=== PATIENT | female | born 1970 | race Caucasian/White ===

== ENCOUNTER 2016-07-14 10:15 | Emergency (ER) | payer BC ==
[~2016-07-14] VITALS: Wt 77.0 kg
[~2016-07-14 10:15] MED LIST: AMLO-147 PO; ATOR40TA68 PO; DEXT10TA9 PO; DICL50TA11 PO; NORE-38 PO; PANT40TA4 PO; VALS320T11 PO
[2016-07-14] MEDS ORDERED: HYDROCODONE/APAP (5/325) TAB PO ONE (12:00)
--- NOTE | 2016-07-14 12:38 | RADRPT ---
PROCEDURE: XR Left Elbow. CLINICAL INDICATION: Fracture, injury. TECHNIQUE: Three views of the left elbow are available for review. COMPARISON: None available FINDINGS: Note that evaluation of bony detail is significantly limited in evaluation due to the overlying spli nt. There is an oblique fracture of the posterior olecranon extending to the proximal ulnar shaft w ith about up to 5 mm dorsal displacement of the distal fracture fragment. There also appears to be s uperior and volar subluxation of the distal humerus relative to the radius. There may also be sublu xation at the radioulnar articulation. There is no definite fracture of the radius. The humerus is limited in evaluation although appears largely intact without a displaced fracture. There is a join t effusion. RPTAT: ZZ IMPRESSION: 1. Limited evaluation with a mildly displaced oblique fracture of the posterior olecranon extending to the proximal ulnar shaft. 2. Slight superior and volar subluxation of the distal humerus relative to the radius and possible subluxation at the radioulnar joint. 3. Joint effusion. 4. Note that the examination is significantly limited due to the overlying splint in which other fr actures may be present within the elbow; a follow-up CT may be helpful for additional evaluation. .Daniela Cross MD, MD Date Time Electronically viewed and signed by .Daniela Cross MD, on 07/14/2016 12:38 .T/
--- NOTE | 2016-07-14 15:51 | ERD ---
ER Documentation Chief Complaint Date/Time DATE: 07/14/16 TIME: 15:46 Chief Complaint LEFT ELBOW PAIN, PT ON SPLINT S/P FRACTURE/DISLOCATION HPI 45-year-old female with a past medical history of hyperlipidemia, hypertension presents the ED for follow-up care for her left leg and on fracture she sustained 3 days ago. States that she was in [place] and accidentally tripped over a curb and landed on her left elbow. Reports that a physician at the [facility] recommended for patient to get surgery for her fracture however she wanted to come back to [place] to follow-up with an orthopedic physician here. States that it was initially dislocated and the reduced it without any complications. Patient is right-handed. Reports that she has been taking Garvin for pain. States that she gets spastic type of pains in her left arm with movement and rates it a 9 out of 10. Denies any fever, chills, increased redness, swelling, loss of sensation, loss of range of motion. ROS All systems reviewed and are negative except as per history of present illness. Medications Home Meds Reported Medications Diclofenac Sodium* (Diclofenac Sodium*) 50 Mg Tablet.dr, 50 MG PO DAILY, #60 TAB 06/11/16 Amphet Mzt-Uldnma-G-Amphet (Adderall) 10 Mg Tablet, 10 MG PO DAILY Y for ANXIETY , TAB 06/11/16 Pantoprazole* (Pantoprazole*) 40 Mg Tablet.dr, 40 MG PO DAILY, TAB 06/11/16 Valsartan* (Diovan*) 320 Mg Tablet, 320 MG PO DAILY, TAB 06/11/16 Amlodipine Besylate* (Amlodipine Besylate*) 10 Mg Tablet, 10 MG PO DAILY, #30 TAB 06/11/16 Atorvastatin* (Atorvastatin*) 40 Mg Tablet, 20 MG PO QHS, #30 TAB 06/11/16 Noreth A-Et Estra-Fe Fumarate (Minastrin 24 Fe Chew) 1 Each Tab.chew, 1 TAB PO DAILY, TAB.CHEW 06/11/16 Allergies Allergies: Coded Allergies: Sulfa (Sulfonamide Antibiotics) (Unverified Allergy, Unknown, 06/10/16) acetaminophen (Unverified Allergy, Unknown, 06/10/16) clindamycin (Unverified Allergy, Unknown, 06/10/16) oxycodone (Unverified Allergy, Unknown, 06/10/16) PMhx/Soc History of Surgery: Yes (back sx (may 23, 2016) Anesthesia Reaction: No Hx Neurological Disorder: No Hx Respiratory Disorders: No Hx Cardiac Disorders: Yes (HTN) Hx Psychiatric Problems: No Hx Miscellaneous Medical Probl: No Hx Alcohol Use: No Hx Substance Use: No Hx Tobacco Use: No Smoking Status: Never smoker Physical Exam Vitals Vital Signs Date Time Temp Pulse Resp B/P Pulse Ox O2 Delivery O2 Flow Rate FiO2 07/14/16 10:21 98.4 93 17 135/93 97 Physical Exam Const: Asv-jmr-nligjlqxw, well-nourished. In no acute distress. Head: Atraumatic, normocephalic Eyes: Normal Conjunctiva without injection ENT: Normal external ear, nose and mouth. Neck: Full range of motion. No meningismus. Resp: Clear to auscultation bilaterally. No wheezing, rhonchi, rales, or crackles. No accessory muscle use. No retractions. Cardio: Regular rate and rhythm, no murmurs Skin: No petechiae or rashes Back: No midline tenderness. No CVA tenderness. Ext: No cyanosis, or edema. Left posterior elbow splint placed, patient is neurovascularly intact. Limited range of motion due to pain. Cap refill less than 2 seconds. Distal pulses intact bilaterally. Neur: Awake and alert. Normal gait and coordination. Muscle strength 5/5. Sensation intact bilaterally. Psych: Normal Mood and Affect Results 24 hrs Current Medications Medications (Trade) Dose Ordered Sig/Sandra Route PRN Reason Start Time Stop Time Status Last Admin Dose Admin Acetaminophen/ Hydrocodone Bitart (Garvin (5/325)) 1 tab ONCE ONCE PO 07/14/16 12:00 07/14/16 12:01 DC 07/14/16 12:04 Procedures/MDM This is a 45-year-old female with a past medical history of hyperlipidemia, hypertension presents the ED complaining of a left elbow fracture. Patient is afebrile and nontoxic-appearing. Patient did not receive reports from the [facility]. Therefore a repeat left elbow x-ray was ordered to further evaluate patient. Patient was given Garvin here in the ED with improvement of her pain. PROCEDURE: XR Left Elbow. CLINICAL INDICATION: Fracture, injury. TECHNIQUE: Three views of the left elbow are available for review. COMPARISON: None available FINDINGS: Note that evaluation of bony detail is significantly limited in evaluation due to the overlying splint. There is an oblique fracture of the posterior olecranon extending to the proximal ulnar shaft with about up to 5 mm dorsal displacement of the distal fracture fragment. There also appears to be superior and volar subluxation of the distal humerus relative to the radius. There may also be subluxation at the radioulnar articulation. There is no definite fracture of the radius. The humerus is limited in evaluation although appears largely intact without a displaced fracture. There is a joint effusion. RPTAT: ZZ IMPRESSION: 1. Limited evaluation with a mildly displaced oblique fracture of the posterior olecranon extending to the proximal ulnar shaft. 2. Slight superior and volar subluxation of the distal humerus relative to the radius and possible subluxation at the radioulnar joint. 3. Joint effusion. 4. Note that the examination is significantly limited due to the overlying splint in which other fractures may be present within the elbow; a follow-up CT may be helpful for additional evaluation. Patient sustained a mildly displaced oblique fracture of the posterior olecranon extending to the proximal ulnar shaft with a slight superior and volar subluxation of the distal humerus relative to the radius and possible subluxation of the radial ulnar joint. This was discussed with the orthopedist on-call, Dr. Hillman who stated that patient can be managed on outpatient basis at his clinic. Splint Assessment: Neurovascularly intact post splint placement with good fit.Patient's extremity symptoms have stabilized while they have been evaluated in the department and are appropriate for outpatient follow up. No evidence of compartment syndrome, neurologic injury, vascular injury, open joint, open fracture, tendon laceration, septic arthritis, osteomyelitis, DVT, foreign body , or other emergent conditions. Discharge medications: Patient already received a prescription for Vicodin from the [facility]. No prescriptions given at this time. Follow up with primary care physician in 1-2 days. Instructed patient to return to the ED sooner for any worsening symptoms. Patient's questions were answered. Patient understood and agreed with discharge plan. Patient discharged stable. Departure Diagnosis: Primary Impression: Elbow fracture, left Encounter type: initial encounter Fracture type: closed Qualified Code: S42.402A - Elbow fracture, left, closed, initial encounter Condition: Stable Patient Instructions: Elbow Fracture Referrals: TRACE DENSON MD [facility] YOU HAVE RECEIVED A MEDICAL SCREENING EXAM AND THE RESULTS INDICATE THAT YOU DO NOT HAVE A CONDITION THAT REQUIRES URGENT TREATMENT IN THE EMERGENCY DEPARTMENT. FURTHER EVALUATION AND TREATMENT OF YOUR CONDITION CAN WAIT UNTIL YOU ARE SEEN IN YOUR DOCTORS OFFICE WITHIN THE NEXT 1-2 DAYS. IT IS YOUR RESPONSIBILITY TO MAKE AN APPOINTMENT FOR FOLOW-UP CARE. IF YOU HAVE A PRIMARY DOCTOR --you should call your primary doctor and schedule an appointment IF YOU DO NOT HAVE A PRIMARY DOCTOR YOU CAN CALL OUR PHYSICIAN REFERRAL HOTLINE AT IF YOU CAN NOT AFFORD TO SEE A PHYSICIAN YOU CAN CHOSE FROM THE FOLLOWING [facility] [address] [facility]. [facility] [address] [facility]. [facility] [address] [facility] [address] [facility] [address] [facility]. [facility] [address] [facility]. [facility] YOU HAVE RECEIVED A MEDICAL SCREENING EXAM AND THE RESULTS INDICATE THAT YOU DO NOT HAVE A CONDITION THAT REQUIRES URGENT TREATMENT IN THE EMERGENCY DEPARTMENT. FURTHER EVALUATION AND TREATMENT OF YOUR CONDITION CAN WAIT UNTIL YOU ARE SEEN IN YOUR DOCTORS OFFICE WITHIN THE NEXT 1-2 DAYS. IT IS YOUR RESPONSIBILITY TO MAKE AN APPOINTMENT FOR FOLOW-UP CARE. IF YOU HAVE A PRIMARY DOCTOR --you should call your primary doctor and schedule and appointment IF YOU DO NOT HAVE A PRIMARY DOCTOR YOU CAN CALL OUR PHYSICIAN REFERRAL HOTLINE AT . IF YOU CAN NOT AFFORD TO SEE A PHYSICIAN YOU CAN CHOSE FROM THE FOLLOWING [facility] INSTITUTIONS: [facility] [address] [place] [address] [facility] [address] [place] [address] FOR[facility] + [facility] [address] [place] [address] [facility] Urgent Care 7 a.m.- 11 p.m. Every Day of the Week NO APPOINTMENT OR AUTHORIZATION NEEDED SO [facility] Hours: Mon-Fri 9:00 AM - 5:00 PM Additional Instructions: FOLLOW UP WITH ORTHOPEDIC PHYSICIAN TOMORROW. Return to this facility if you are not improving as expected. DRE MURILLO PA-C Jul 14, 2016 15:51
== END 2016-07-14 13:40 | disposition home or self-care (01) ==
LOC: FTE 10:15
DX: S42.402A Unspecified fracture of lower end of left humerus, initial encounter for closed fracture (principal); I10 Essential (primary) hypertension; W10.1XXA Fall (on)(from) sidewalk curb, initial encounter; Y92.9 Unspecified place or not applicable